=== PATIENT | female | born 1945 | race Caucasian/White ===

== ENCOUNTER 2021-02-18 09:29 | Outpatient (CLI) | payer MEDICARE, SELFPAY ==
--- NOTE | 2021-02-18 09:38 | MM_ITS ---
WS: [id number] BILATERAL SCREENING DIGITAL MAMMOGRAM WITH CAD HISTORY: SCREENING COMPARISON: 03/26/2018 and 04/12/2016 and 10/01/2007 Bilateral CC and MLO views submitted. Computer aided detection analyzed. Breast composition: There are scattered areas of fibroglandular density. No suspicious masses, microc alcifications or architectural distortion. Seen on the LEFT MLO projection is an area of increased de nsity along the posterior chest wall above the nipple line. This may be a lymph node or an artifact b ut needs to be further evaluated to exclude a posterior neoplasm. MM/[id number] IMPRESSION: BI-RADS: 0-Incomplete: Need additional imaging evaluation FOLLOW UP: Need Additional Imaging Additional imaging directed to the curvilinear partially visualized density dillon ng the posterior chest wall. Additional mammographic imaging to obtain more pos terior will be attempted.
== END 2021-02-18 09:30 | disposition home or self-care (01) ==
LOC: RADSHAW 09:35
PROVIDERS: Family Provider Family Medicine; PCP Family Medicine; Visit Provider Family Medicine
DX: Z12.31 Encounter for screening mammogram for malignant neoplasm of breast (principal)
CPT/HCPCS: 77067

== ENCOUNTER 2021-03-08 09:54 | Outpatient (CLI) | payer MEDICARE, SELFPAY ==
--- NOTE | 2021-03-08 10:00 | MM_ITS ---
WS: [id number] ADDITIONAL VIEWS LEFT MAMMOGRAM HISTORY: OTHER ABNORMAL/INCONCLUSIVE FINDING ON DIAGNOSTIC IMAGING OF BREAST COMPARISON: 02/18/2021 and 03/26/2018 Spot compression views LEFT breast in CC, MLO projections and true ML submitted. The curvilinear density seen in the posterior breast on the prior exam is probably the marker that wa s placed over the breast indicating a mole and only a very small edge of this marker was included. Th ere are no suspicious masses on additional views. MM/[id number] IMPRESSION: BI-RADS: 2-Benign FOLLOW UP: 1 Year Follow-up Return to annual screening mammography.
== END 2021-03-08 09:55 | disposition home or self-care (01) ==
LOC: RADSHAW 09:57
PROVIDERS: PCP Family Medicine; Visit Provider Family Medicine
DX: R92.8 Other abnormal and inconclusive findings on diagnostic imaging of breast (principal)
CPT/HCPCS: 77065

== ENCOUNTER 2022-03-16 08:11 | Outpatient (CLI) | payer MEDICARE, SELFPAY ==
--- NOTE | 2022-03-16 08:18 | MM_ITS ---
WS: [id number] BILATERAL SCREENING DIGITAL BREAST TOMOSYNTHESIS MAMMOGRAM WITH CAD HISTORY: SCREENING COMPARISON: 03/06/2021, 02/18/2021 and 03/26/2018 Bilateral CC and MLO views with tomosynthesis and synthetic mammography submitted. Computer aided det ection analyzed. Breast composition: There are scattered areas of fibroglandular density. No suspicious masses, microc alcifications or architectural distortion. Benign calcifications in each breast. MM/[place] [id number] IMPRESSION: BI-RADS: 2-Benign FOLLOW UP: 1 Year Follow-up
== END 2022-03-16 08:12 | disposition home or self-care (01) ==
LOC: RAD 08:13
PROVIDERS: PCP Family Medicine; Visit Provider Family Medicine
DX: Z12.31 Encounter for screening mammogram for malignant neoplasm of breast (principal)
CPT/HCPCS: 77063; 77067

== ENCOUNTER 2022-04-14 12:54 | Outpatient (CLI) | payer MEDICARE, SELFPAY ==
--- NOTE | 2022-04-14 13:40 | XR_ITS ---
WS: [id number] DEXA (DUAL ENERGY X-RAY ABSORPTIOMETRY) Bone mineral density was performed using a [employer] machine. HISTORY: ASYMPTOMATIC MENOPAUSAL STATE COMPARISON: 03/26/2018 Lumbar spine BMD (L1-L4): 1.235 g/cm2 T score: 0.5 Z score: 1.7 Total hip BMD: Left: 0.837 g/cm2. T score: -1.4 Z score: 0.0 Right: 0.848 g/cm2. T score: -1.3 Z score: 0.1 10 year probability of a major osteoporotic fracture is 18.1%. Compared to the prior study from 03/26/2018. Lumbar spine bone mineral density has decreased by 1.7%. Bilateral hips bone mineral density has not changed. XR/XR DEXA axial skeleton* [id number] IMPRESSION: OSTEOPENIA based upon the WHO classification for females. No significant change in bone mineral density since the prior study.
== END 2022-04-14 12:55 | disposition home or self-care (01) ==
LOC: RAD 12:56
PROVIDERS: PCP Family Medicine; Visit Provider Family Medicine
DX: Z78.0 Asymptomatic menopausal state (principal); M85.80 Other specified disorders of bone density and structure, unspecified site
CPT/HCPCS: 77080

== ENCOUNTER 2022-07-05 12:00 | Outpatient (CLI) | payer MEDICARE, SELFPAY ==
[2022-07-05 13:07] LABS: Free T4 Free Thyroxine 1.13 ng/dL (0.82-1.77); Thyroid Stimulating Hormone 2.19 uIU/mL (0.27-4.20)
[2022-07-06 11:47] LABS: CENTROMERE B ANTIBODY <1.0 NEG AI (<1.0 NEG); JO-1 ANTIBODY <1.0 NEG AI (<1.0 NEG); RNP ANTIBODY <1.0 NEG AI (<1.0 NEG); SCL-70 ANTIBODY <1.0 NEG AI (<1.0 NEG); SJOGREN'S ANTIBODY (SS-A) <1.0 NEG AI (<1.0 NEG); SM ANTIBODY <1.0 NEG AI (<1.0 NEG); SS-B <1.0 NEG AI (<1.0 NEG)
[2022-07-06 16:33] LABS: THYROID PEROXIDASE ANTIBODIES 110 IU/mL (<9)
[2022-07-06 16:44] LABS: ANA SCREEN, IFA NEGATIVE (NEGATIVE); Thyroid Peroxidase Antobodies 124 IU/mL (<9)
[2022-07-07 13:08] LABS: COMPLEMENT COMPONENT C3C 114 mg/dL (83-193); COMPLEMENT COMPONENT C4C 20 mg/dL (15-57)
[2022-07-07 14:43] LABS: DNA AB (DS) CRITHIDIA,IFA NEGATIVE (NEGATIVE)
[2022-07-07 14:54] LABS: COMPLEMENT, TOTAL (CH50) >60 U/mL (31-60)
== END 2022-07-05 12:01 | disposition home or self-care (01) ==
LOC: LAB 12:04
PROVIDERS: PCP Family Medicine; Visit Provider Dermatology
DX: L50.9 Urticaria, unspecified (principal); L90.0 Lichen sclerosus et atrophicus; R53.83 Other fatigue
CPT/HCPCS: 36415; 84439; 84443; 86160; 86162; 86235; 86255; 86376

== ENCOUNTER 2022-07-11 07:56 | Emergency (ER) | payer MEDICARE, SELFPAY ==
[2022-07-11 08:02] VITALS: BP 135/82; PULSE 99; RESP 18; TEMP 36.9; O2SAT 98; BMI 29.8
--- NOTE | 2022-07-11 08:14 | ED_ITS ---
HPI - Allergic Reaction General: Chief complaint: Allergic Reaction Stated complaint: Hives Time Seen by Provider: 07/11/22 07:57 Source: patient Mode of arrival: ambulatory History of Present Illness: HPI narrative: 76-year-old female presents with persistent recurrent hives for the last couple of months. She seen Dr. Rizvi for this previously and was treated with antihistamines steroids tacrolimus. She states it continues to recur its more concentrated inframammary and on the extremities she has had no difficulty with breathing or swallowing. MD complaint: hives Onset (ago): month(s) Exposure: unknown Associated symptoms: Deny abdominal pain, difficulty breathing, dysphagia, dizziness, facial swelling, hoarseness, itching, lip swelling, nausea, rash, tongue swelling or vomiting Severity: moderate Treatment prior to arrival: benadryl, steroids and other (Tacrolimus) Previous Allergic Reaction History: none Review of Systems Const: Denies: fever(s), chills, body aches, change in appetite, fatigue or malaise ENMT: Denies: hoarseness Card: Denies: chest pain, edema, dyspnea on exertion or orthopnea Resp: Denies: dyspnea, productive cough or non-productive cough GI: Denies: abdominal pain, nausea, vomiting or dysphagia Skin/Breast: Reports: other (Recurrent hives) Neuro: Denies: dizziness All/Imm: Denies: tongue swelling or facial swelling PFSH ED PFSH: Medical History (Updated 07/11/22 @ 08:13 by Edil Cordoba DO) No pertinent past medical history Surgical History (Updated 06/14/22 @ 07:19 by Sissy Rizvi DO) History of hysterectomy Social History Smoking and tobacco status: never smoked Physical Exam Const: COMMON NORMALS: no acute distress GENERAL APPEARANCE: cooperative and comfortable ORIENTATION/CONSCIOUSNESS: Yes awake, Yes oriented to person, Yes oriented to place and Yes oriented to time HENMT: COMMON NORMALS: normocephalic, atraumatic and hearing grossly normal bilaterally HEAD & SCALP: normocephalic and atraumatic Resp: COMMON NORMALS: normal respiratory effort, No retractions, No use of accessory muscles and clear to auscultation bilaterally AUSCULTATION: clear to auscultation bilaterally Cardio: COMMON NORMALS: regular rate, regular rhythm and No murmurs present (Cardio) RATE: regular rate RHYTHM: regular rhythm Extremity: COMMON NORMALS: normal to inspection, capillary refill normal, no clubbing, cyanosis or edema, no calf tenderness and no pedal edema Neuro: SENSORIUM/ORIENTATION: Yes oriented to person, Yes oriented to place and Yes oriented to time Skin: OTHER: Mild urticarial rash concentrated underneath the breasts bilaterally scattered faintly on the arms slight raised lesions urticarial wheal and flare. Some coalescing particularly inframammary. Course Vital Signs: Vital signs: Vital Signs Temperature 98.4 F 07/11/22 08:02 Pulse Rate 99 07/11/22 08:02 Respiratory Rate 18 07/11/22 08:02 Blood Pressure 135/82 07/11/22 08:02 Pulse Oximetry 98 07/11/22 08:02 MDM - Allergic Reaction Medical Decision Making This is an issue patient has had for months she has no acute reaction at this time no respiratory compromise no evidence of anaphylaxis. We will give her a prednisone taper and antihistamines. Continue medicines previously prescribed by Dr. Rizvi and strongly encouraged follow-up with Dr. Rizvi's office. Reviewing Dr. Rizvi's note she had treated and recommended that the patient follow-up with her if these persisted. This seems to be a mild flareup. Patient was questioning getting a steroid shot advised her that the p.o. steroids will be equally effective and she can taper off of them. Medical Records I reviewed the patient's medical records. Discharge Plan Discharge Patient Disposition: Home Clinical Impression: Urticaria Condition: Stable Prescriptions: New prednisone 20 mg tablet 20 mg PO TID Qty: 15 0RF Rx Instructions: 1 p.o. 3 times daily x3 days, 1 p.o. twice daily x2 days, 1 p.o. daily x2 days hydroxyzine HCl 25 mg tablet 25 mg PO Q6H PRN (Reason: itching, hives) Qty: 20 0RF Discontinued methylprednisolone 4 mg tablets,dose pack 4 mg PO No Action neomycin-polymyxin B-dexameth 3.5 mg/g-10,000 unit/g-0.1 % ointment 1 applic ophthalmic (eye) lisinopril-hydrochlorothiazide 20-12.5 mg tablet 1 tab PO tacrolimus 0.1 % ointment 1 applic topical BID Qty: 30 1RF Rx Instructions: to eyelids prn triamcinolone acetonide 0.1 % ointment 1 applic topical BID Qty: 453.6 0RF Rx Instructions: to affected areas on trunk and extremities prn Discharge Orders: Discharge ED (Routine); Ordered 07/11/22 Ordered By: Edil Cordoba Referrals: Sissy Rizvi DO [Physician] - Discharge Diet: Usual diet Discharge Activity: Resume usual activity Activity Restrictions/Additional Instructions: Recommend following up with Dr. Rizvi. Coding Level of Care Code ED Supervisor [employer] for Jimy Morales
== END 2022-07-11 08:22 | disposition home or self-care (01) ==
PROVIDERS: Emergency Provider Family Medicine; PCP Family Medicine
DX: T78.40XA Allergy, unspecified, initial encounter (principal); X58.XXXA Exposure to other specified factors, initial encounter; L50.9 Urticaria, unspecified
CPT/HCPCS: 99283

== ENCOUNTER → 2022-09-14 08:48 | Outpatient (BNVA) | payer MEDICARE, SELFPAY | PROVIDERS: PCP Family Medicine; Visit Provider Internal Medicine | DX: E06.3 Autoimmune thyroiditis (principal); L50.9 Urticaria, unspecified; Z79.890 Hormone replacement therapy | CPT/HCPCS: 99204 ==

== ENCOUNTER 2022-09-15 11:10 | Outpatient (CLI) | payer MEDICARE, SELFPAY ==
[2022-09-15 13:31] LABS: Free T4 Free Thyroxine 1.08 ng/dL (0.82-1.77); Thyroid Stimulating Hormone 1.71 uIU/mL (0.27-4.20)
== END 2022-09-15 11:11 | disposition home or self-care (01) ==
PROVIDERS: PCP Family Medicine; Visit Provider Internal Medicine
DX: E06.3 Autoimmune thyroiditis (principal)
CPT/HCPCS: 84439; 84443

== ENCOUNTER → 2022-11-08 09:37 | Outpatient (BNVA) | payer MEDICARE, SELFPAY | PROVIDERS: PCP Family Medicine; Visit Provider Internal Medicine | DX: E06.3 Autoimmune thyroiditis (principal); L50.9 Urticaria, unspecified; Z79.890 Hormone replacement therapy | CPT/HCPCS: 36415; 84439; 84443; 84480; 99214 ==

== ENCOUNTER → 2023-02-08 15:39 | Outpatient (BNVA) | payer MEDICARE, SELFPAY | PROVIDERS: PCP Family Medicine; Visit Provider Registered Nurse Neonatal Intensive Care | DX: R52 Pain, unspecified (principal) | CPT/HCPCS: 87426 ==

== ENCOUNTER 2023-02-12 14:20 | Emergency (ER) | payer MEDICARE, SELFPAY ==
[2023-02-12 14:27] VITALS: BP 97/63; PULSE 74; RESP 14; TEMP 37.2; O2SAT 96; BMI 30.2
--- NOTE | 2023-02-12 15:00 | XRR_ITS ---
PROCEDURE INFORMATION: Exam: XR Chest Exam date and time: 02/12/2023 2:15 PM Age: 77 years old Clinical indication: Other: Weakness TECHNIQUE: Imaging protocol: Radiologic exam of the chest. Views: 1 view. COMPARISON: No relevant prior studies available. FINDINGS: Lungs: Nodular/streaky opacities noted in the medial aspect of the right upper lung. Pleural spaces: Unremarkable. No pleural effusion. No pneumothorax. Heart/Mediastinum: Unremarkable. No cardiomegaly. Bones/joints: Unremarkable. XR/XR chest 1V portable [id number] IMPRESSION: Nodular/streaky opacities noted in the medial aspect of the right upper lung, suspicious for infiltrates.
[2023-02-12 15:57] LABS: Basophils % 0.1 %; Eosinophils % 0.5 %; Hematocrit 41.6 % (37.0-47.0); Lymphocytes # 0.7 10^3/uL (0.8-4.8); Lymphocytes % 8.8 %; Mean Corpuscular HGB Conc 33.7 g/dL (30.0-36.0); Mean Corpuscular Hemoglobin 29.3 pg (28.0-34.0); Mean Platelet Volume 10.9 fL (7.4-10.4); Monocytes # 0.7 10^3/uL (0.2-0.9); Monocytes % 8.9 %; Neutrophils # 6.55 10^3/uL (1.8-7.7); Neutrophils % 81.2 %; Nucleated Red Blood Cells % 0 %; Platelet Count 261 10^3/cmm (130-400); Red Blood Count 4.78 10^6/uL (4.1-5.3); Red Cell Distribution Width 11.6 % (12.1-15.1); White Blood Count 8.1 10^3/uL (4.0-10.0)
[2023-02-12 16:24] LABS: Alanine Aminotransferase 27 U/L (0-33); Albumin Level 3.9 g/dL (3.5-5.2); Alkaline Phosphatase 54 U/L (35-105); Anion Gap 17.4 (5-19); Aspartate Amino Transferase 30 U/L (0-32); Blood Urea Nitrogen 15 mg/dL (8-23); Calcium 9.2 mg/dL (8.5-10.5); Carbon Dioxide 27 mmol/L (22-29); Chloride 88 mmol/L (98-107); Globulin 3.3 g/dL (1.3-4.6); Glucose 208 mg/dL (65-115); Osmolality Calculated 275 mOsm/kg (285-295); Potassium 3.4 mmol/L (3.5-5.1); Sodium 129 mmol/L (136-145); Total Bilirubin 0.6 mg/dL (0.15-1.2); Total Protein 7.2 g/dL (6.6-8.7)
--- NOTE | 2023-02-12 16:35 | ECG_ITS ---
[facility] Test Date: 2023-02-12 Pat Name: Lu Key Department: Room: Gender: Female Pipe Racker: : [id number] Requested By: Sunni Bell Order Number: [id number] Lara MD: Eddie Polanco M.D. Measurements Intervals [place] Rate: 70 P: 49 [place]: 147 QRS: 18 QRSD: 92 T: 40 QT: 400 QTc: 434 Interpretive Statements SINUS RHYTHM No previous ECG available for comparison Electronically Signed On 02-13-2023 8:30:22 CDT by Eddie Polanco M.D. [email or web address]
[2023-02-12] MEDS: sodium chloride 0.9% 1,000 ML 999 ML IV (17:11)
[2023-02-12 17:16] LABS: Glucose Point of Care 158 mg/dL (70-110)
--- NOTE | 2023-02-12 17:32 | W.ED.WEAKNES ---
HPI - Weakness General: Chief complaint: Weakness Stated complaint: weakness sick for week Time Seen by Provider: 02/12/23 16:15 History of Present Illness: 77-year-old female presents emergency department chief complaint of malaise and fatigue and just generalized feeling of unwell over the last 1 week recently seen in outpatient clinic diagnosed with some fluid behind the ear started on some Flonase patient does not endorse having any recent episodes of chest pain or palpitation or shortness of breath reports no nausea vomiting diarrhea reports a mild productive cough otherwise unremarkable. Patient reports reduced appetite and oral intake patient does not endorse any other associated symptoms. Associated symptoms: Denies chest pain, chills, fever(s), headache(s), nausea or vomiting Review of Systems General: Reports: 10 or more systems reviewed and unremarkable except in HPI and below Const: Reports: body aches, change in appetite, fatigue and malaise; Denies: fever(s) or chills Eyes: Denies: change in vision or blurry vision Card: Denies: chest pain or palpitations Resp: Denies: dyspnea or productive cough GI: Denies: abdominal pain, nausea or vomiting : Denies: flank pain Musc: Denies: extremity pain or extremity swelling Skin/Breast: Denies: rash or pruritus Neuro: Denies: headache(s) Psych: Denies: anxiety or depression [place]/Lymph: Denies: easy bleeding All/Imm: Denies: urticaria, throat swelling or facial swelling [facility] ED PFSH: Medical History No pertinent past medical history Surgical History History of hysterectomy Family History Other Diabetes Social History Smoking and tobacco status: never smoked Physical Exam Narrative: EXAM NARRATIVE: Patient appears nontoxic appears no obvious acute distress afebrile no focal neurodeficit appreciated. Somewhat flat affect noted Const: COMMON NORMALS: no acute distress, patient oriented x3 and healthy appearing HENMT: COMMON NORMALS: normocephalic and atraumatic HEAD & SCALP: normocephalic and atraumatic Eye: COMMON NORMALS: Equal, round and reactive pupils present and EOMs intact bilaterally PUPIL: Yes Equal, round and reactive pupils present Neck/C-Spine: COMMON NORMALS: full ROM, supple and no JVD Lymph: LYMPHATIC: no lymphadenopathy noted Chest: COMMONS NORMALS: normal inspection of the chest and normal palpation of entire chest wall Resp: COMMON NORMALS: normal respiratory effort, No retractions and clear to auscultation bilaterally EFFORT & INSPECTION: Yes able to speak in complete sentences and Yes symmetric chest movement AUSCULTATION: clear to auscultation bilaterally Cardio: COMMON NORMALS: no JVD, regular rate and regular rhythm RATE: regular rate RHYTHM: regular rhythm GI: COMMON NORMALS: Normal to inspection, nondistended, normoactive bowel sounds present, Soft to palpation and non-tender INSPECTION: Yes normal to inspection PALPATION: Yes Soft to palpation : COMMON NORMALS: Yes no CVA tenderness BLADDER/KIDNEY EXAM: Yes no CVA tenderness Back/Pelvis: COMMON NORMALS: no CVA tenderness Extremity: COMMON NORMALS: normal to inspection and full ROM Neuro: COMMON NORMALS: patient oriented x3, CN's II-XII intact bilaterally, moves all extremities and no focal motor deficits Psych: COMMON NORMALS: mental status grossly normal, Normal thought process present, cooperative and normal affect THOUGHT PROCESS: Normal thought process present Skin: COMMON NORMALS: no rashes or lesions noted GENERAL SKIN EXAM: no rashes or lesions noted Course Vital Signs: Vital signs: Vital Signs Temperature 98.9 F 02/12/23 14:27 Pulse Rate 74 02/12/23 14:27 Respiratory Rate 14 02/12/23 14:27 Blood Pressure 97/63 02/12/23 14:27 Pulse Oximetry 96 02/12/23 14:27 Oxygen Delivery Me thod Room Air 02/12/23 14:27 MDM - Weakness Medical Decision Making Due to the patient's symptoms think and condition basic medical screening evaluation will be obtained to under rule out underlying potential infection patient does endorse having recent myalgias and arthralgias did not endorse any recent tick bites or concerns of tickborne disease we will be doing a basic cardiac work-up due to patient's associated symptoms we will continue to follow. Patient was found to have mild hyponatremia as well as urinary tract infection she was notified of both these findings she was provided dose of Rocephin prior to subsequent discharge advised that she further follow-up with primary care in 3 to 5 days in which she was advised to return the interim if any of her symptoms persist or worse. Lab Data 02/12/23 15:38 02/12/23 15:38 Radiology Impressions Chest X-Ray 02/12/23 15:00 IMPRESSION: Nodular/streaky opacities noted in the medial aspect of the right upper lung, suspicious for infiltrates. Laboratory Results WBC 8.1 10^3/uL (4.0-10.0) 02/12/23 15:38 RBC 4.78 10^6/uL (4.1-5.3) 02/12/23 15:38 Hgb 14.0 g/dL (11.5-15.3) 02/12/23 15:38 Hct 41.6 % (37.0-47.0) 02/12/23 15:38 MCV 87.0 fl (81-99) 02/12/23 15:38 MCH 29.3 pg (28.0-34.0) 02/12/23 15:38 MCHC 33.7 g/dL (30.0-36.0) 02/12/23 15:38 RDW 11.6 % (12.1-15.1) L 02/12/23 15:38 Plt Count 261 10^3/cmm (130-400) 02/12/23 15:38 MPV 10.9 fL (7.4-10.4) H 02/12/23 15:38 Neut % (Auto) 81.2 % 02/12/23 15:38 Lymph % (Auto) 8.8 % 02/12/23 15:38 [place] % (Auto) 8.9 % 02/12/23 15:38 Eos % (Auto) 0.5 % 02/12/23 15:38 Baso % (Auto) 0.1 % 02/12/23 15:38 Neut # (Auto) 6.55 10^3/uL (1.8-7.7) 02/12/23 15:38 Lymph # (Auto) 0.7 10^3/uL (0.8-4.8) L 02/12/23 15:38 [place] # (Auto) 0.7 10^3/uL (0.2-0.9) 02/12/23 15:38 Eos # (Auto) 0.0 10^3/uL (0.0-0.8) 02/12/23 15:38 Baso # (Auto) 0.0 10^3/uL (0.0-0.1) 02/12/23 15:38 Nucleated RBC % (auto) 0 % 02/12/23 15:38 Nucleated RBCs # 0.0 /100WBC 02/12/23 15:38 Sodium 129 mmol/L (136-145) L 02/12/23 15:38 Potassium 3.4 mmol/L (3.5-5.1) L 02/12/23 15:38 Chloride 88 mmol/L (98-107) L 02/12/23 15:38 Carbon Dioxide 27 mmol/L (22-29) 02/12/23 15:38 Anion Gap 17.4 (5-19) 02/12/23 15:38 BUN 15 mg/dL (8-23) 02/12/23 15:38 Creatinine 0.9 mg/dL (0.5-0.9) 02/12/23 15:38 GFR Calculation Not Reportable 02/12/23 15:38 Glucose 208 mg/dL (65-115) H 02/12/23 15:38 POC Glucose 158 mg/dL (70-110) H 02/12/23 17:06 Calculated Osmolality 275 mOsm/kg (285-295) L 02/12/23 15:38 Calcium 9.2 mg/dL (8.5-10.5) 02/12/23 15:38 Total Bilirubin 0.6 mg/dL (0.15-1.2) 02/12/23 15:38 AST 30 U/L (0-32) 02/12/23 15:38 ALT 27 U/L (0-33) 02/12/23 15:38 Alkaline Phosphatase 54 U/L (35-105) 02/12/23 15:38 Troponin T Baseline 8 ng/L (0-10) 02/12/23 13:58 Troponin T 120 Minute 6.97 ng/L (0-10) 02/12/23 18:18 Delta Troponin T -1.03 ABS# (0-10) L 02/12/23 18:18 C-Reactive Protein 66.6 mg/L (0.0-4.9) H 02/12/23 13:58 NT-Pro-B Natriuret Pep 165 pg/mL (0-450) 02/12/23 13:58 Total Protein 7.2 g/dL (6.6-8.7) 02/12/23 15:38 Albumin 3.9 g/dL (3.5-5.2) 02/12/23 15:38 Globulin 3.3 g/dL (1.3-4.6) 02/12/23 15:38 TSH 1.60 uIU/mL (0.27-4.20) 02/12/23 15:38 Urine Color Yellow (Yellow) 02/12/23 16:57 Urine Appearance Sl cloudy (CLEAR) A 02/12/23 16:57 Urine pH 5 (5-7) 02/12/23 16:57 Ur Specific [place] 1.020 (1.005-1.030) 02/12/23 16:57 Urine Protein Trace (Negative) 02/12/23 16:57 Urine Glucose (UA) Norm (Normal) 02/12/23 16:57 Urine Ketones Negative (Negative) 02/12/23 16:57 Urine Blood 3+ (Negative) H 02/12/23 16:57 Urine Nitrate Negative (Negative) 02/12/23 16:57 Urine Bilirubin Neg (Negative) 02/12/23 16:57 Urine Urobilinogen 1 mg/dL (Negative) H 02/12/23 16:57 Ur Leukocyte Esterase 2+ (Negative) H 02/12/23 16:57 Urine RBC 0-4 /hpf (0-2) H 02/12/23 16:57 Urine WBC 10-15 /hpf (0-5) H 02/12/23 16:57 Ur Squamous Epith Cells 0-4 /hpf (0-5) H 02/12/23 16:57 Amorphous Sediment Not Reportable 02/12/23 16:57 Urine Bacteria 1+ /hpf (NONE) H 02/12/23 16:57 Hyaline Casts 0-4 /lpf H 02/12/23 16:57 Urine Mucus 1+ /hpf 02/12/23 16:57 Discharge Plan Discharge Patient Disposition: Home Clinical Impression: Urinary tract infection, Arthralgia, Hyponatremia Condition: Stable Prescriptions: New Cipro 500 mg tablet 500 mg PO BID Qty: 7 0RF No Action fluticasone propionate [Flonase Allergy Relief] 50 mcg/actuation spray,suspension 1 spray intranasal DAILY Qty: 16 0RF Rx Instructions: administer into each nostril lisinopril-hydrochlorothiazide 20-12.5 mg tablet 1 tab PO DAILY levothyroxine 25 mcg tablet 12.5 mcg PO DAILY Discharge Orders: Discharge ED (Routine); Ordered 02/12/23 Ordered By: Garcia Harris Referrals: Hilda Treadwell MD [Primary Care Provider] - 4-7 days Discharge Diet: Advance as tolerated Discharge Activity: Increase activity as tolerated Patient Instructions: Hyponatremia (ED), Urinary Tract Infection - Women Activity Restrictions/Additional Instructions: Please follow-up with your primary care doctor in 3 to 5 days, increase your water consumption as well as increase your salt consumption as you are 5 be slightly hyponatremic or low sodium please return in the interim if any of your symptoms persist or worse. Coding Level of Care Code ED Customer Associate for Jimy Morales
[2023-02-12 17:37] LABS: Troponin(5th) Baseline 8 ng/L (0-10)
[2023-02-12 17:45] LABS: C Reactive Protein 66.6 mg/L (0.0-4.9); NT Pro B Type Natriuretic Pept 165 pg/mL (0-450)
[2023-02-12 18:14] LABS: Add Urine Microscopic? YES; Bacteria Urine 1+ /hpf; Bilirubin Urine Neg (Negative); Blood Urine 3+ (Negative); Glucose Urine UA Norm (Normal); Hyaline Casts Urine 0-4 /lpf; Ketones Urine Negative (Negative); Leukocyte Esterase Urine 2+ (Negative); Mucus Urine 1+ /hpf; Nitrate Urine Negative (Negative); Protein Urine Trace (Negative); RBC Urine 0-4 /hpf (0-2); Squamous Epithelial Cell Urine 0-4 /hpf (0-5); Urine Color Yellow (Yellow); Urobilinogen Urine 1 mg/dL (Negative); pH Urine 5 (5-7)
[2023-02-12 18:44] LABS: Troponin 5 2HR 6.97 ng/L (0-10)
[2023-02-12] MEDS: cefTRIAXone 1,000 MG in sodium chloride 0.9% (plus) 50 ML 100 MG IV (18:56)
[2023-02-12 18:57] LABS: Troponin 5 2HR Delta -1.03 ABS# (0-10)
--- NOTE | 2023-02-12 19:04 | PC.NURSE ---
REPORT GIVEN TO [facility].
[2023-02-12 20:03] VITALS: BP 122/59; PULSE 65; RESP 16; O2SAT 93
[2023-02-14 12:19] LABS: T4 Total 9.5 mcg/dL (5.1-11.9)
== END 2023-02-12 20:05 | disposition home or self-care (01) ==
PROVIDERS: Physician Assistant; Emergency Provider Emergency Medicine; PCP Family Medicine
DX: N39.0 Urinary tract infection, site not specified (principal); M25.50 Pain in unspecified joint; E87.1 Hypo-osmolality and hyponatremia
CPT/HCPCS: 36415; 36416; 71045; 80053; 81001; 82962; 83880; 84436; 84443; 84484; 85025; 86140; 93005; 96361; 96365; 99285; J0696; J7030

== ENCOUNTER 2023-03-01 11:28 | Outpatient (CLI) | payer MEDICARE, SELFPAY ==
[2023-03-01 12:38] LABS: Thyroid Stimulating Hormone 1.41 uIU/mL (0.27-4.20)
[2023-03-03 11:23] LABS: T3 Total 114 ng/dL (76-181)
== END 2023-03-01 11:29 | disposition home or self-care (01) ==
PROVIDERS: PCP Family Medicine; Visit Provider Internal Medicine
DX: E06.3 Autoimmune thyroiditis (principal)
CPT/HCPCS: 36415; 84439; 84443; 84480

== ENCOUNTER → 2023-03-02 10:39 | Outpatient (BNVA) | payer MEDICARE, SELFPAY | PROVIDERS: PCP Family Medicine; Visit Provider Internal Medicine | DX: E06.3 Autoimmune thyroiditis (principal); L50.9 Urticaria, unspecified; M79.10 Myalgia, unspecified site; Z87.440 Personal history of urinary (tract) infections; Z79.890 Hormone replacement therapy | CPT/HCPCS: 99214 ==

== ENCOUNTER 2023-06-04 13:56 | Outpatient (CLI) | payer MEDICARE, SELFPAY ==
--- NOTE | 2023-06-04 14:01 | MM_ITS ---
WS: [id number] BILATERAL 3D TOMOSYNTHESIS DIGITAL SCREENING MAMMOGRAPHY WITH CAD CLINICAL INFORMATION: SCREENING HISTORY: Screening mammogram. No current complaints. COMPARISON: 03/16/2022 TECHNIQUE: Bilateral CC and MLO views. FINDINGS: Scattered fibroglandular densities bilaterally. No suspicious focal mass, asymmetry, calcifications, or architectural distortion. No evidence of malignancy. Incidental punctate and lucent centered calci fications. IMPRESSION: MM/[place] [id number] BI-RADS: 2-Benign FOLLOW UP: 1 Year Follow-up Recommend return to annual screening mammography.
== END 2023-06-04 13:57 | disposition home or self-care (01) ==
PROVIDERS: PCP Family Medicine; Visit Provider Family Medicine
DX: Z12.31 Encounter for screening mammogram for malignant neoplasm of breast (principal)
CPT/HCPCS: 77063; 77067

== ENCOUNTER 2023-09-03 09:52 | Outpatient (CLI) | payer MEDICARE, SELFPAY | END 2023-09-03 09:53 | disposition home or self-care (01) | LOC: LAB 09:53 | PROVIDERS: PCP Family Medicine; Visit Provider Internal Medicine | DX: E06.3 Autoimmune thyroiditis (principal); L50.9 Urticaria, unspecified; K21.9 Gastro-esophageal reflux disease without esophagitis; Z79.890 Hormone replacement therapy | CPT/HCPCS: 36415; 84439; 84443; 99214 ==

== ENCOUNTER → 2024-05-15 07:59 | Outpatient (BNVA) | payer MEDICARE, SELFPAY | PROVIDERS: PCP Family Medicine; Visit Provider Internal Medicine | DX: E06.3 Autoimmune thyroiditis (principal); L50.9 Urticaria, unspecified; M79.10 Myalgia, unspecified site; K21.9 Gastro-esophageal reflux disease without esophagitis; N39.0 Urinary tract infection, site not specified; Z79.890 Hormone replacement therapy | CPT/HCPCS: 99214 ==

== ENCOUNTER 2024-06-06 12:52 | Outpatient (CLI) | payer MEDICARE, SELFPAY ==
--- NOTE | 2024-06-06 12:59 | MM_ITS ---
WS: [id number] BILATERAL 3D TOMOSYNTHESIS DIGITAL SCREENING MAMMOGRAPHY WITH CAD CLINICAL INFORMATION: SCREENING HISTORY: Screening mammogram. No current complaints. COMPARISON: 2022 TECHNIQUE: Bilateral CC and MLO views. FINDINGS: Scattered fibroglandular densities bilaterally. No suspicious focal mass, asymmetry, calcifications, or architectural distortion. No evidence of malignancy. Incidental punctate and lucent centered calci fications. MM/MM scr tomosynthesis [id number] IMPRESSION: DENSITY: There are scattered areas of fibroglandular density. BI-RADS: 2 - Benign. FOLLOW UP: 1 Year Follow-up Recommend return to annual screening mammography.
--- NOTE | 2024-06-06 12:59 | XR_ITS ---
WS: [id number] DEXA (DUAL ENERGY X-RAY ABSORPTIOMETRY) Bone mineral density was performed using a [employer] machine. HISTORY: POSTMENOPAUSAL COMPARISON: 04/14/2022 Lumbar spine BMD (L1-L4): 1.237 T score: 0.3 Z score: 1.4 Total hip BMD: Left: 0.778 g/cm2. T score: -1.8 Z score: -0.5 Right: 0.828 g/cm2. T score: -1.4 Z score: -0.1 10 year probability of a major osteoporotic fracture is 24.8%. Compared to the prior study from 04/14/2022. Lumbar spine bone mineral density has decreased by 1.3%. Bilateral hips bone mineral density has decreased by 4.7%. XR/XR DEXA axial skeleton* [id number] IMPRESSION: OSTEOPENIA based upon the WHO classification for females. Significant decrease in bone mineral density within the hips since the prior .
== END 2024-06-06 12:53 | disposition home or self-care (01) ==
LOC: RAD 12:53
PROVIDERS: PCP Family Medicine; Visit Provider Family Medicine
DX: Z12.31 Encounter for screening mammogram for malignant neoplasm of breast (principal); R92.323 Mammographic fibroglandular density, bilateral breasts; R92.1 Mammographic calcification found on diagnostic imaging of breast; Z13.820 Encounter for screening for osteoporosis; Z78.0 Asymptomatic menopausal state; M85.80 Other specified disorders of bone density and structure, unspecified site
CPT/HCPCS: 77063; 77067; 77080

== ENCOUNTER 2024-10-24 10:14 | Outpatient (CLI) | payer MEDICARE, SELFPAY ==
--- NOTE | 2024-10-24 10:23 | XR_ITS ---
WS: [id number] Left hip, AP and frog-leg views, 10/24/2024 Clinical Data: LEFT HIP PAIN Comparison: None. Findings: No fractures or dislocations are seen. The left hip shows no erosion, sclerosis, narrowing, cyst formation or fragmentation of the left femoral head. The soft tissues are not remarkable. The adjacent pelvis is normal. XR/XR hip LT 2-3V wo/w pel* [id number] Impression: Negative left hip.
== END 2024-10-24 10:15 | disposition home or self-care (01) ==
PROVIDERS: PCP Family Medicine; Visit Provider Family Medicine
DX: M25.552 Pain in left hip (principal)
CPT/HCPCS: 73502

== ENCOUNTER 2024-11-07 10:10 | Outpatient (CLI) | payer MEDICARE, SELFPAY ==
[2024-11-07 11:04] LABS: Free T4 Free Thyroxine 1.12 ng/dL (0.82-1.77); Thyroid Stimulating Hormone 1.58 uIU/mL (0.27-4.20)
== END 2024-11-07 10:11 | disposition home or self-care (01) ==
LOC: LAB 10:11
PROVIDERS: PCP Family Medicine; Visit Provider Internal Medicine
DX: E06.3 Autoimmune thyroiditis (principal)
CPT/HCPCS: 84439; 84443

== ENCOUNTER → 2024-11-14 08:09 | Outpatient (BNVA) | payer MEDICARE, SELFPAY | PROVIDERS: PCP Family Medicine; Visit Provider Internal Medicine | DX: E06.3 Autoimmune thyroiditis (principal); L50.9 Urticaria, unspecified; M79.10 Myalgia, unspecified site; K21.9 Gastro-esophageal reflux disease without esophagitis; N39.0 Urinary tract infection, site not specified; I10 Essential (primary) hypertension | CPT/HCPCS: 99214 ==

== ENCOUNTER 2025-05-06 14:52 | Outpatient (CLI) | payer MEDICARE, SELFPAY ==
[2025-05-06 16:07] LABS: Free T4 Free Thyroxine 1.05 ng/dL (0.82-1.77); Thyroid Stimulating Hormone 1.19 uIU/mL (0.27-4.20)
== END 2025-05-06 14:53 | disposition home or self-care (01) ==
PROVIDERS: PCP Family Medicine; Visit Provider Internal Medicine
DX: I10 Essential (primary) hypertension (principal); E06.3 Autoimmune thyroiditis; L50.9 Urticaria, unspecified; M79.10 Myalgia, unspecified site; K21.9 Gastro-esophageal reflux disease without esophagitis; N39.0 Urinary tract infection, site not specified
CPT/HCPCS: 36415; 84439; 84443

== ENCOUNTER → 2025-05-15 08:21 | Outpatient (BNVA) | payer MEDICARE, SELFPAY | PROVIDERS: PCP Family Medicine; Visit Provider Internal Medicine | DX: E06.3 Autoimmune thyroiditis (principal); M79.10 Myalgia, unspecified site; I10 Essential (primary) hypertension; L50.9 Urticaria, unspecified | CPT/HCPCS: 99214 ==